=== PATIENT | male | born 1940 | race African-American/Black ===

== ENCOUNTER 2016-11-06 06:42 | Day surgery (SDC) | payer MEDICARE ==
[~2016-11-06 06:42] MED LIST: AMIO200T44 PO; APIX5TAB PO; CARV12 PO; LISI-662 PO; VITAD1000 PO
[2016-11-06 07:36] LABS: BASOPHILS % (AUTO) 0.5 % (0.0-2.0); EOSINOPHILS % (AUTO) 0.9 % (1.0-6.0); HEMATOCRIT 50.1 % (41-53); HEMOGLOBIN 16.1 g/dL (13.5-17.5); LYMPHOCYTES # (AUTO) 1.7 K/uL (1.0-4.8); LYMPHOCYTES % (AUTO) 36.5 % (22.0-44.0); MEAN CORPUSCULAR HEMOGLOBIN 30.8 pg (26.0-34.0); MEAN CORPUSCULAR HGB CONC 32.1 G/dL (31.0-37.0); MEAN CORPUSCULAR VOLUME 96 fL (80-100); MONOCYTES # (AUTO) 0.6 K/uL (0.1-1.0); MONOCYTES % (AUTO) 13.1 % (2.0-9.0); NEUTROPHILS # (AUTO) 2.2 K/uL (1.8-7.7); PLATELET COUNT (AUTO) 196 K/uL (150-450); RED BLOOD CELL COUNT(AUTO) 5.22 MIL/uL (4.50-5.90); RED CELL DISTRIBUTION WIDTH 17.7 % (11.5-14.5); WHITE BLOOD COUNT (AUTO) 4.6 K/uL (4.5-11.0)
[2016-11-06 07:44] LABS: ANION GAP 8 mmol/L (8-16); CALCIUM, TOTAL 8.6 mg/dL (8.8-10.5); CARBON DIOXIDE 29 mmol/L (22-29); CHLORIDE 102 mmol/L (98-107); GLOMERULAR FILTR. RATE CALC > 60 mL/min (>60); POTASSIUM 4.4 mmol/L (3.5-5.1); SODIUM SERUM 139 mmol/L (136-145); UREA NITROGEN, BLOOD 3 mg/dL (7-18)
[2016-11-06 07:45] LABS: INR 1.2 (0.9-1.1); PROTHROMBIN TIME 12.7 SEC (9.4-11.6)
[2016-11-06 07:59] LABS: THYROID STIMULATING HORMONE 2.07 uIU/mL (0.36-3.74)
[2016-11-06 08:04] LABS: B-TYPE NATRIURETIC PEPTIDE 361 pg/mL (0-100)
[2016-11-06 08:26] LABS: APPEARANCE,URINE CLEAR (CLEAR); GLUCOSE, URINE (UA) NEGATIVE (NEGATIVE); KETONES,URINE NEGATIVE (NEGATIVE); LEUKOCYTE ESTERASE ,URINE NEGATIVE (NEGATIVE); OCCULT BLOOD,URINE NEGATIVE (NEGATIVE); PROTEIN,URINE NEGATIVE (NEGATIVE)
[2016-11-06 08:30] LABS: RBC MORPHOLOGY COMMENT ABNORMAL RBC MORPH
[2016-11-06 08:33] LABS: ADD UA MICROSCOPIC NO
[2016-11-06] MEDS ORDERED: SODIUM CHLORIDE 0.9% 1,000 ML IV ONE (09:00)
[2016-11-06] MEDS ORDERED: FentaNYL CITRATE-PF 100 MCG/2 ML VIAL IVP ONE (09:00)
[2016-11-06] MEDS ORDERED: ATORVASTATIN CALCIUM 40 MG TABLET PO ONE (09:00)
[2016-11-06] MEDS ORDERED: ASPIRIN 325 MG TABLET PO ONE (09:00)
[2016-11-06] MEDS ORDERED: DiphenhydrAMINE HCL 50 MG/ML VIAL IVP ONE (09:00)
[2016-11-06] MEDS ORDERED: MIDAZOLAM HCL 2 MG/2 ML VIAL IVP ONE (09:00)
[2016-11-06] MEDS ORDERED: CLOPIDOGREL BISULFATE 75 MG TABLET PO ONE (09:00)
[2016-11-06] MEDS ORDERED: ACETAMINOPHEN 325 MG TABLET PO PRN (09:00)
[2016-11-09] MEDS ORDERED: SODIUM CHLORIDE 0.9% 0 ML IV ONE (16:22)
== END 2016-11-06 08:45 | disposition home or self-care (01) ==
LOC: CATHLAB 06:42
PROVIDERS: ATTEND Internal Medicine Interventional Cardiology
DX: R94.39 Abnormal result of other cardiovascular function study (principal); Z53.8 Procedure and treatment not carried out for other reasons
CPT/HCPCS: 84443; 93005

== ENCOUNTER 2016-11-08 08:41 | Day surgery (SDC) | payer MEDICARE ==
[~2016-11-08] VITALS: Ht 182.9 cm; Wt 71.8 kg
[~2016-11-08 08:41] MED LIST changes: +ACETAMINOPHEN 325 MG TABLET PO PRN; +ASPIRIN 325 MG TABLET PO ONE; +ATORVASTATIN CALCIUM 40 MG TABLET PO ONE; +CLOPIDOGREL BISULFATE 75 MG TABLET PO ONE; +DiphenhydrAMINE HCL 50 MG/ML VIAL IVP ONE; +FentaNYL CITRATE-PF 100 MCG/2 ML VIAL IV ONE; +MIDAZOLAM HCL 2 MG/2 ML VIAL IVP ONE; +SODIUM CHLORIDE 0.9% 1,000 ML IV ONE
[2016-11-08] MEDS ORDERED: SODIUM CHLORIDE 0.9% 1,000 ML IV ONE (09:30)
[2016-11-08 09:45] LABS: INR 1.2 (0.9-1.1); PROTHROMBIN TIME 12.2 SEC (9.4-11.6)
[2016-11-08] MEDS ORDERED: DiphenhydrAMINE HCL 50 MG/ML VIAL ONE (11:20)
[2016-11-08] MEDS ORDERED: IOHEXOL 300 MG/ML 150 ML VIAL ONE (11:25)
[2016-11-08] MEDS ORDERED: SODIUM BICARBONATE 50 MEQ/50 ML VIAL ONE (11:25)
[2016-11-08] MEDS ORDERED: LIDOCAINE HCL/PF 1% 30 ML VIAL ONE (11:25)
[2016-11-08] MEDS ORDERED: HEPARIN SODIUM 1000 UNITS/NS 1,000 ML ONE (11:25)
[2016-11-08 11:40] VITALS: BP 179/93
[2016-11-08] MEDS ORDERED: MIDAZOLAM HCL 2 MG/2 ML VIAL ONE (11:46)
[2016-11-08] MEDS ORDERED: VERAPAMIL HCL 2.5 MG/ML 2 ML VIAL ONE (11:46)
[2016-11-08] MEDS ORDERED: FentaNYL CITRATE-PF 100 MCG/2 ML VIAL ONE (11:46)
[2016-11-08] MEDS ORDERED: NITROGLYCERIN 50 MG/D5% WATER 0 ML ONE (11:47)
[2016-11-08] MEDS ORDERED: HEPARIN SODIUM 1000 UNITS/NS 1,000 ML IARTER ONE (12:12)
[2016-11-08] MEDS ORDERED: LIDOCAINE 1% 30 ML/SOD BICARB 8.4% 4 ML SQ ONE (12:15)
[2016-11-08] MEDS ORDERED: IOHEXOL 300 MG/ML 150 ML VIAL IARTER ONE (12:15)
[2016-11-08 12:44] VITALS: BP 174/91
[2016-11-08] MEDS ORDERED: MIDAZOLAM HCL 2 MG/2 ML VIAL IVP ONE (12:45)
[2016-11-08] MEDS ORDERED: FentaNYL CITRATE-PF 100 MCG/2 ML VIAL IVP ONE (12:45)
== END 2016-11-08 18:30 | disposition home or self-care (01) ==
LOC: CATHLAB 08:41
PROVIDERS: ATTEND Internal Medicine Interventional Cardiology
DX: R07.9 Chest pain, unspecified (principal); E11.9 Type 2 diabetes mellitus without complications; I10 Essential (primary) hypertension; M54.9 Dorsalgia, unspecified; F17.210 Nicotine dependence, cigarettes, uncomplicated; F12.21 Cannabis dependence, in remission; Z72.89 Other problems related to lifestyle; Z98.890 Other specified postprocedural states; Z79.01 Long term (current) use of anticoagulants
CPT/HCPCS: 36415; 85610; 85730; 93458; C1892; J1200; J1644; J2250; J3010; J3490 ×2; J7030; Q9967

== ENCOUNTER 2017-11-19 03:52 | Emergency (ER) | payer MEDICARE ==
[~2017-11-19] VITALS: Ht 188 cm; Wt 81.2 kg
[~2017-11-19 03:52] MED LIST changes: -ACETAMINOPHEN 325 MG TABLET PO PRN; -ASPIRIN 325 MG TABLET PO ONE; -ATORVASTATIN CALCIUM 40 MG TABLET PO ONE; -CLOPIDOGREL BISULFATE 75 MG TABLET PO ONE; -DiphenhydrAMINE HCL 50 MG/ML VIAL IVP ONE; -FentaNYL CITRATE-PF 100 MCG/2 ML VIAL IV ONE; -MIDAZOLAM HCL 2 MG/2 ML VIAL IVP ONE; -SODIUM CHLORIDE 0.9% 1,000 ML IV ONE
[2017-11-19] MEDS ORDERED: FAMO20 GT (04:17)
[2017-11-19] MEDS ORDERED: APIX5TAB PO (04:17)
[2017-11-19] MEDS ORDERED: VANC1PLA10 IV (04:17)
[2017-11-19] MEDS ORDERED: CARV6 GT (04:17)
[2017-11-19] MEDS ORDERED: MIRT15 GT (04:17)
[2017-11-19] MEDS ORDERED: VITAD1000 GT (04:17)
[2017-11-19] MEDS ORDERED: CIPR-278 GT (04:17)
[2017-11-19] MEDS ORDERED: AMPI2VIA9 IV (04:17)
[2017-11-19 08:35] VITALS: BP 114/82
== END 2017-11-19 10:49 | disposition home or self-care (01) ==
LOC: EMS 03:53
DX: Z46.59 Encounter for fitting and adjustment of other gastrointestinal appliance and device (principal); I11.0 Hypertensive heart disease with heart failure; I50.9 Heart failure, unspecified; I48.91 Unspecified atrial fibrillation; Z86.73 Personal history of transient ischemic attack (TIA), and cerebral infarction without residual deficits
CPT/HCPCS: 49450; 99284